=== PATIENT | male | born 1965 | race Caucasian/White ===

== ENCOUNTER 2017-07-17 16:09 | Emergency (ER) | payer OTHER, SELFPAY ==
[2017-07-17 16:15] VITALS: BP 127/73; PULSE 67; RESP 20; TEMP 36.4; O2SAT 100; BMI 22.8
--- NOTE | 2017-07-17 16:51 | PC.NURSE ---
Rt forearm pain/redness/swelling worsening over 4 days, began with pain/tenderness of elbow, no known injury, no wound or open area present, distal cms intact, full AROM, denies fever/cough/soa/nausea/fatigue or other sx
--- NOTE | 2017-07-17 17:06 | ED.UPPEXIN ---
HPI - Extremity Injury (Upper) <NEWTON Diggs - Last Filed: 07/17/17 20:33> General Chief Complaint: Extremity Injury, Upper Stated Complaint: RT ARM IS SWOLLEN Time Seen by Provider: 07/17/17 16:45 Source: patient Mode of arrival: ambulatory Limitations: no limitations History of Present Illness HPI narrative: Patient presents from the clinic with erythema of his right elbow. He states this started a few days ago with pain at the tip of his elbow, but erythema extended last night and today. He denies any fevers, nausea, vomiting, diarrhea. He went to his primary care and was found to have a low-grade fever 99.9. He denies any pain or range of motion restriction, other than severe flexion which is restricted due to swelling of his elbow. Related Data Previous Rx's Medication Instructions Recorded cephalexin 500 mg PO Q8H 10 Days #30 cap 07/17/17 Allergies Allergy/AdvReac Type Severity Reaction Status Date / Time No Known Drug Allergies Allergy Verified 07/17/17 15:42 Review of Systems <NEWTON Diggs - Last Filed: 07/17/17 20:33> Review of Systems GENERAL: See HPI HEENT: Denies sinus pain, ear pain, sore throat, difficulty swallowing, dizziness. RESPIRATORY: Denies dyspnea, cough, wheezing, hemoptysis, sputum. CARDIOVASCULAR: Denies chest pain, palpitations, orthopnea, edema, GASTROINTESTINAL: Denies nausea, vomiting, abdominal pain, diarrhea, constipation, melena. : Denies dysuria, frequency, incontinence, hematuria, urinary retention. MUSCULOSKELETAL: See HPI SKIN: See HPI NEUROLOGIC: Denies weakness, headache, numbness, change in speech, confusion, seizures, incoordination. PSYCHIATRIC: No concerning psychosocial issues. 12 point review of systems is negative except for those stated above Exam <NEWTON Diggs - Last Filed: 07/17/17 20:33> Narrative Exam Narrative: GENERAL: This is a well-nourished, well-developed patient, no distress sitting on chair. HEAD: Atraumatic. Normocephalic. No temporal or scalp tenderness. EYES: Pupils equal round and reactive. Extraocular motions intact. No scleral icterus. No injection or drainage. ENT: Nose without bleeding, purulent drainage or septal hematoma. Throat without erythema, tonsillar hypertrophy or exudate. Uvula midline. Airway patent. NECK: Trachea midline. No JVD or lymphadenopathy. Supple, nontender, no meningeal signs. CARDIOVASCULAR: Regular rate and rhythm without murmurs, gallops, or rubs. RESPIRATORY: Clear to auscultation. Breath sounds equal bilaterally. No wheezes, rales, or rhonchi. GASTROINTESTINAL: Abdomen soft, non-tender, nondistended. No hepato-splenomegaly, or palpable masses. No guarding. EXTREMITIES: Pitting edema noted area of erythema on right forearm and elbow. Patient is able to flex right elbow fully and extend without difficulty. BACK: Nontender without deformity or crepitance. No flank tenderness. NEURO: AOx3. SKIN: Area of diffuse erythema and warmth noted over right elbow. Erythema extends down to wrist and up to mid humerus. No obvious wound noted. Swelling at tip of elbow olecranon noted. Initial Vital Signs Initial Vital Signs: Vital Signs Temperature 97.5 F L 07/17/17 16:15 Pulse Rate 67 07/17/17 16:15 Respiratory Rate 20 07/17/17 16:15 Blood Pressure 127/73 H 07/17/17 16:15 Pulse Oximetry 100 07/17/17 16:15 <Hilary Ponce DO - Last Filed: 07/18/17 07:36> Initial Vital Signs Initial Vital Signs: Vital Signs Temperature 97.5 F L 07/17/17 16:15 Pulse Rate 67 07/17/17 16:15 Respiratory Rate 20 07/17/17 16:15 Blood Pressure 127/73 H 07/17/17 16:15 Pulse Oximetry 100 07/17/17 16:15 Course <ALEKSANDR Diggs-BC - Last Filed: 07/17/17 20:33> Hospital Course: Patient presented from clinic with concern of severe cellulitis. Patient was evaluated with Dr. Ponce. He was noted to have almost full range of motion, was afebrile, had stable vital signs, no signs of systemic illness. An x-ray was taken to ensure no deeper etiology of infection or joint involvement. Patient was given 1st dose of antibiotics while in the emergency department. Discussed at length with patient return precautions of fever, worsening erythema, extending erythema nausea vomiting or diarrhea. Erythema was outlined with a skin marker prior to discharge. Orders Ordered: Discontinued Medications Cephalexin HCl (Keflex) 500 mg PO NOW ONE Stop: 07/17/17 18:10 Last Admin: 07/17/17 18:16 Dose: 500 mg Vital Signs - 8 hr 07/17/17 16:15 07/17/17 18:59 Temperature 97.5 F L 98.0 F Pulse Rate 67 61 Respiratory Rate 20 12 Blood Pressure 127/73 H 123/74 H Pulse Oximetry 100 99 <Hilary Ponce DO - Last Filed: 07/18/17 07:36> Orders Ordered: Discontinued Medications Cephalexin HCl (Keflex) 500 mg PO NOW ONE Stop: 07/17/17 18:10 Last Admin: 07/17/17 18:16 Dose: 500 mg Vital Signs - 8 hr 07/17/17 16:15 07/17/17 18:59 Temperature 97.5 F L 98.0 F Pulse Rate 67 61 Respiratory Rate 20 12 Blood Pressure 127/73 H 123/74 H Pulse Oximetry 100 99 MDM - Extremity Injury (Upper) <NEWTON Diggs - Last Filed: 07/17/17 20:33> Imaging Data right elbow xray: Radiologist's impression: [place] [address] XRay Report Signed Patient: Javier Segundo MR#: [id number] : 1965 Acct:[id number] Age/Sex: 51 / M Date of Service: 07/17/17 Loc: ED Accession Number: [id number] Procedure: XR elbow RT min 3V Ordering Provider: Barb Thompson PROCEDURE: XR ELBOW RT MIN 3V INDICATIONS: erythema, pain right elbow TECHNIQUE: 3 views of the elbow were acquired. COMPARISON: None. FINDINGS: Bones: No fractures or dislocations. No suspicious bony lesions. Soft tissues: No elbow joint effusion. No suspicious soft tissue calcifications. IMPRESSION: No trauma found. Dictated by: Javier Blackburn M.D. on 07/17/2017 at 18:23 Approved by: Javier Blackburn M.D. on 07/17/2017 at 18:23 [facility] Narrative Medical decision making narrative: Patient presented for primary care office for concern of worsening infection, low-grade temp at primary care. However of the emergency department, he is afebrile with stable vital signs. As he is normotensive, not tachycardic and afebrile he has no SIRS criteria. It was determined of Dr. Ponce that he meets criteria for outpatient treatment. He was given a dose of Keflex in the emergency department as well as a prescription for continued therapy. Discussed at length with patient and could follow-up criteria as well as emergency department criteria including fever, nausea, vomiting, diarrhea, aches severely extending redness. Patient and no questions or concerns upon discharge. Discharge Plan Departure Patient Disposition: Home, Self-Care Clinical Impression: Cellulitis of elbow Discharge Date/Time: 07/17/17 18:59 Interventions: ED Discharge Assessment Last Done: 07/17/17 18:59 Instructions: DI for Cellulitis -- Adult Activity Restrictions/Additional Instructions: You have been diagnosed with cellulitis which is an infection in the skin. I am starting on a medication called cephalexin which is an antibiotic. I would like you to come back to the emergency department for any severely extending redness, fevers, nausea vomiting or diarrhea. Feel free to follow up with primary care as needed, but if you are acutely sick I would like you to come back to the emergency department. Please rest your arm, elevated, and ice it for pain. Prescriptions: New cephalexin 500 mg capsule 500 mg PO Q8H 10 Days Qty: 30 RF: 0 Referrals: Brittney Zhou MD [Primary Care Provider] - <Hilary Ponce DO - Last Filed: 07/18/17 07:36> Cosign ED Attending Padmini Attestation: I was immediately available in the department for consultation. Documentation has been reviewed. I agree with assessment and plan.
--- NOTE | 2017-07-17 17:25 | DI.RAD.S_ITS ---
PROCEDURE: XR ELBOW RT MIN 3V INDICATIONS: erythema, pain right elbow TECHNIQUE: 3 views of the elbow were acquired. COMPARISON: None. FINDINGS: Bones: No fractures or dislocations. No suspicious bony lesions. Soft tissues: No elbow joint effusion. No suspicious soft tissue calcifications. IMPRESSION: No trauma found. Dictated by: Javier Blackburn M.D. on 07/17/2017 at 18:23 Approved by: Javier Blackburn M.D. on 07/17/2017 at 18:23
--- NOTE | 2017-07-17 17:48 | ED_ITS ---
HPI - Extremity Injury (Upper) <NEWTON Diggs - Last Filed: 07/17/17 20:33> General Chief Complaint: Extremity Injury, Upper Stated Complaint: RT ARM IS SWOLLEN Time Seen by Provider: 07/17/17 16:45 Source: patient Mode of arrival: ambulatory Limitations: no limitations History of Present Illness HPI narrative: Patient presents from the clinic with erythema of his right elbow. He states this started a few days ago with pain at the tip of his elbow , but erythema extended last night and today. He denies any fevers, nausea, vomiting, diarrhea. He went to his primary care and was found to have a low- grade fever 99.9. He denies any pain or range of motion restriction, other than severe flexion which is restricted due to swelling of his elbow. Related Data Previous Rx's Medication Instructions Recorded cephalexin 500 mg PO Q8H 10 Days #30 cap 07/17/17 Allergies Allergy/AdvReac Type Severity Reaction Status Date / Time No Known Drug Allergies Allergy Verified 07/17/17 15:42 Review of Systems <NEWTON Diggs - Last Filed: 07/17/17 20:33> Review of Systems GENERAL: See HPI HEENT: Denies sinus pain, ear pain, sore throat, difficulty swallowing, dizziness. RESPIRATORY: Denies dyspnea, cough, wheezing, hemoptysis, sputum. CARDIOVASCULAR: Denies chest pain, palpitations, orthopnea, edema, GASTROINTESTINAL: Denies nausea, vomiting, abdominal pain, diarrhea, constipation, melena. : Denies dysuria, frequency, incontinence, hematuria, urinary retention. MUSCULOSKELETAL: See HPI SKIN: See HPI NEUROLOGIC: Denies weakness, headache, numbness, change in speech, confusion, seizures, incoordination. PSYCHIATRIC: No concerning psychosocial issues. 12 point review of systems is negative except for those stated above Exam <NEWTON Diggs - Last Filed: 07/17/17 20:33> Narrative Exam Narrative: GENERAL: This is a well-nourished, well-developed patient, no distress sitting on chair. HEAD: Atraumatic. Normocephalic. No temporal or scalp tenderness. EYES: Pupils equal round and reactive. Extraocular motions intact. No scleral icterus. No injection or drainage. ENT: Nose without bleeding, purulent drainage or septal hematoma. Throat without erythema, tonsillar hypertrophy or exudate. Uvula midline. Airway patent. NECK: Trachea midline. No JVD or lymphadenopathy. Supple, nontender, no meningeal signs. CARDIOVASCULAR: Regular rate and rhythm without murmurs, gallops, or rubs. RESPIRATORY: Clear to auscultation. Breath sounds equal bilaterally. No wheezes , rales, or rhonchi. GASTROINTESTINAL: Abdomen soft, non-tender, nondistended. No hepato-splenomegaly , or palpable masses. No guarding. EXTREMITIES: Pitting edema noted area of erythema on right forearm and elbow. Patient is able to flex right elbow fully and extend without difficulty. BACK: Nontender without deformity or crepitance. No flank tenderness. NEURO: AOx3. SKIN: Area of diffuse erythema and warmth noted over right elbow. Erythema extends down to wrist and up to mid humerus. No obvious wound noted. Swelling at tip of elbow olecranon noted. Initial Vital Signs Initial Vital Signs: Vital Signs Temperature 97.5 F L 07/17/17 16:15 Pulse Rate 67 07/17/17 16:15 Respiratory Rate 20 07/17/17 16:15 Blood Pressure 127/73 H 07/17/17 16:15 Pulse Oximetry 100 07/17/17 16:15 <Hilary Ponce DO - Last Filed: 07/18/17 07:36> Initial Vital Signs Initial Vital Signs: Vital Signs Temperature 97.5 F L 07/17/17 16:15 Pulse Rate 67 07/17/17 16:15 Respiratory Rate 20 07/17/17 16:15 Blood Pressure 127/73 H 07/17/17 16:15 Pulse Oximetry 100 07/17/17 16:15 Course <ALEKSANDR Diggs-BC - Last Filed: 07/17/17 20:33> Hospital Course: Patient presented from clinic with concern of severe cellulitis. Patient was evaluated with Dr. Ponce. He was noted to have almost full range of motion, was afebrile, had stable vital signs, no signs of systemic illness. An x-ray was taken to ensure no deeper etiology of infection or joint involvement. Patient was given 1st dose of antibiotics while in the emergency department. Discussed at length with patient return precautions of fever, worsening erythema , extending erythema nausea vomiting or diarrhea. Erythema was outlined with a skin marker prior to discharge. Orders Ordered: Discontinued Medications Cephalexin HCl (Keflex) 500 mg PO NOW ONE Stop: 07/17/17 18:10 Last Admin: 07/17/17 18:16 Dose: 500 mg Vital Signs - 8 hr 07/17/17 16:15 07/17/17 18:59 Temperature 97.5 F L 98.0 F Pulse Rate 67 61 Respiratory Rate 20 12 Blood Pressure 127/73 H 123/74 H Pulse Oximetry 100 99 <Hilary Ponce DO - Last Filed: 07/18/17 07:36> Orders Ordered: Discontinued Medications Cephalexin HCl (Keflex) 500 mg PO NOW ONE Stop: 07/17/17 18:10 Last Admin: 07/17/17 18:16 Dose: 500 mg Vital Signs - 8 hr 07/17/17 16:15 07/17/17 18:59 Temperature 97.5 F L 98.0 F Pulse Rate 67 61 Respiratory Rate 20 12 Blood Pressure 127/73 H 123/74 H Pulse Oximetry 100 99 MDM - Extremity Injury (Upper) <NEWTON Diggs - Last Filed: 07/17/17 20:33> Imaging Data right elbow xray: Radiologist's impression: [place] [address] XRay Report Signed Patient: Javier Segundo MR#: [id number] : 1965 Acct:[id number] Age/Sex: 51 / M Date of Service: 07/17/17 Loc: ED Accession Number: [id number] Procedure: XR elbow RT min 3V Ordering Provider: Barb Thompson PROCEDURE: XR ELBOW RT MIN 3V INDICATIONS: erythema, pain right elbow TECHNIQUE: 3 views of the elbow were acquired. COMPARISON: None. FINDINGS: Bones: No fractures or dislocations. No suspicious bony lesions. Soft tissues: No elbow joint effusion. No suspicious soft tissue calcifications. IMPRESSION: No trauma found. Dictated by: Javier Blackburn M.D. on 07/17/2017 at 18:23 Approved by: Javier Blackburn M.D. on 07/17/2017 at 18:23 [facility] Narrative Medical decision making narrative: Patient presented for primary care office for concern of worsening infection, low-grade temp at primary care. However of the emergency department, he is afebrile with stable vital signs. As he is normotensive, not tachycardic and afebrile he has no SIRS criteria. It was determined of Dr. Ponce that he meets criteria for outpatient treatment. He was given a dose of Keflex in the emergency department as well as a prescription for continued therapy. Discussed at length with patient and could follow-up criteria as well as emergency department criteria including fever, nausea, vomiting, diarrhea, aches severely extending redness. Patient and no questions or concerns upon discharge. Discharge Plan Departure Patient Disposition: Home, Self-Care Clinical Impression: Cellulitis of elbow Discharge Date/Time: 07/17/17 18:59 Interventions: ED Discharge Assessment Last Done: 07/17/17 18:59 Instructions: DI for Cellulitis -- Adult Activity Restrictions/Additional Instructions: You have been diagnosed with cellulitis which is an infection in the skin. I am starting on a medication called cephalexin which is an antibiotic. I would like you to come back to the emergency department for any severely extending redness, fevers, nausea vomiting or diarrhea. Feel free to follow up with primary care as needed, but if you are acutely sick I would like you to come back to the emergency department. Please rest your arm, elevated, and ice it for pain. Prescriptions: New cephalexin 500 mg capsule 500 mg PO Q8H 10 Days Qty: 30 RF: 0 Referrals: Brittney Zhou MD [Primary Care Provider] - <Hilary Ponce DO - Last Filed: 07/18/17 07:36> Cosign ED Attending Padmini Attestation: I was immediately available in the department for consultation. Documentation has been reviewed. I agree with assessment and plan.
[2017-07-17] MEDS: cephALEXin 250 MG CAPSULE 500 MG PO (18:16)
[2017-07-17 18:59] VITALS: BP 123/74; PULSE 61; RESP 12; TEMP 36.7; O2SAT 99
== END 2017-07-17 18:59 | disposition home or self-care (01) ==
PROVIDERS: Emergency Provider Nurse Practitioner Family; Family Provider Family Medicine; PCP Family Medicine
DX: L03.113 Cellulitis of right upper limb (principal)
CPT/HCPCS: 73080; 99282; 99283

== ENCOUNTER → 2022-03-13 16:09 | Outpatient (CLI) | payer OTHER, SELFPAY ==
--- NOTE | 2022-03-13 16:10 | DI.RAD.S_ITS ---
PROCEDURE: XR KNEE RT 3V INDICATIONS: Right Knee pain TECHNIQUE: 3 views of the knee were acquired. COMPARISON: None. FINDINGS: Bones: No fractures or dislocations. Joint spaces in the medial and lateral compartments appear preserved. There is slight lateral tilt of the patella with mild joint space narrowing in the patellofemoral compartment laterally. No suspicious bony lesions. Soft tissues: No joint effusion. No suspicious soft tissue calcifications. IMPRESSION: 1. Mild joint space narrowing in the patellofemoral compartment laterally. Dictated by: Davon Albright M.D. on 03/14/2022 at 1:45 Approved by: Davon Albright M.D. on 03/14/2022 at 1:46
== END ==
PROVIDERS: Family Provider Family Medicine; PCP Family Medicine; Referring Provider Family Medicine; Visit Provider Family Medicine
DX: M25.561 Pain in right knee (principal)
CPT/HCPCS: 73562

== ENCOUNTER → 2022-03-18 07:43 | Outpatient (CLI) | payer OTHER, SELFPAY ==
[2022-03-18 08:44] LABS: Basophils Absolute Auto 100 /uL (0-100); Basophils Percent Auto 0.8 % (0-2); Eosinophils Absolute Auto 100 /uL (0-450); Eosinophils Percent Auto 1.6 % (2-4); Hematocrit 48.8 % (41-53); Hemoglobin 16.5 g/dL (13.5-17.5); Lymphocytes Absolute Auto 1500 /uL (1100-4500); Lymphocytes Percent Auto 20.5 % (25-40); Mean Corpuscular HGB Conc 33.8 % (30-36); Mean Corpuscular Hemoglobin 31.2 PG (26-34); Mean Corpuscular Volume 92.4 fL (80-100); Monocytes Absolute Auto 500 /uL (0-900); Monocytes Percent Auto 7.2 % (3-14); Neutrophils Absolute Auto 5000 /uL (1500-7000); Neutrophils Percent Auto 69.9 % (50-75); Red Blood Cell Count 5.28 X10^6/uL (4.5-5.9); Red Cell Distribution Width 13.4 % (11.6-14.8); White Blood Cell Count 7.1 X10^3/uL (4.5-11.0)
[2022-03-18 08:49] LABS: Alanine Aminotransferase 33 IU/L (<50); Albumin 4.8 g/dL (3.5-5.0); Albumin Globulin Ratio 1.5 (1.0-2.8); Alkaline Phosphatase 58 U/L (38-126); Aspartate Aminotransferase 34 IU/L (17-59); BUN Creatinine Ratio 15.3 (6-22); Bilirubin Total 1.2 mg/dL (0.2-1.3); Blood Urea Nitrogen 17 mg/dL (9-20); Calcium 9.6 mg/dL (8.4-10.2); Carbon Dioxide 27 mmol/L (22-32); Chloride 102 mmol/L (98-107); Cholesterol 199 mg/dL (140-199); Estimated Glomerular Filt Rate > 60 mL/min (>60); Globulin 3.3 g/dL (1.7-4.1); Glucose 86 mg/dL (70-100); HDL Cholesterol 69 mg/dL (40-60); HEMOLYSIS 44 (0-50); LDL Cholesterol Calculated 105 mg/dL (<100); Potassium 4.1 mmol/L (3.4-5.1); Sodium 140 mmol/L (137-145); Total Protein 8.1 g/dL (6.3-8.2); Triglycerides 126 mg/dL (35-150)
[2022-03-18 09:20] LABS: Add Manual Diff / Slide Review SLIDE REVIEW; Platelet Count 137 X10^3/uL (150-400)
[2022-03-18 09:22] LABS: Platelet Estimate Adequate on smear; RBC Morphology Normal Morphology
[2022-03-20 17:19] LABS: Hep C Virus Ab w/Reflex Quant NEGATIVE s/c (NEGATIVE)
== END ==
PROVIDERS: Family Provider Family Medicine; PCP Family Medicine; Referring Provider Family Medicine; Visit Provider Family Medicine
DX: Z53.20 Procedure and treatment not carried out because of patient's decision for unspecified reasons (principal); Z00.00 Encounter for general adult medical examination without abnormal findings; Z11.59 Encounter for screening for other viral diseases
CPT/HCPCS: 36415; 80053; 80061; 85025; 86803

== ENCOUNTER → 2024-04-10 06:43 | Outpatient (CLI) | payer OTHER, SELFPAY ==
[2024-04-10 08:38] LABS: Cholesterol 194 mg/dL (140-199); Glucose 80 mg/dL (70-100); HDL Cholesterol 77 mg/dL (40-60); LDL Cholesterol Calculated 102 mg/dL (<100); Triglycerides 74 mg/dL (35-150)
[2024-04-10 09:07] LABS: Prostate Specific Antigen Scrn 2.35 ng/mL (0.1-4.0)
== END ==
LOC: LAB 06:44
PROVIDERS: Family Provider Family Medicine; PCP Family Medicine; Referring Provider Family Medicine; Visit Provider Family Medicine
DX: Z13.9 Encounter for screening, unspecified (principal); Z12.5 Encounter for screening for malignant neoplasm of prostate
CPT/HCPCS: 36415; 80061; 82947; G0103